=== PATIENT | female | born 1980 | race Caucasian/White ===

== ENCOUNTER 2023-04-05 16:32 | Emergency (ER) | payer OTHER ==
[~2023-04-05] VITALS: Ht 157.5 cm; Wt 122.5 kg
--- NOTE | 2023-04-05 16:32 | NUR ---
PT BIB SELF FROM HOME C/O SWELLING AND LEFT EYELID PUFFINESS. PT STATES WOKE UP THIS AM AT 0030 WITH FACIAL SWELLING. PT STATES SOME PAIN 5/10 ON LEFT SIDE OF FACE THAT DOES NOT RADIATE. PAIN IS POUNDING. PT DENIES ANY KNOWN ALLERGIC REACTION. PT RESTING COMFORTABLY IN CHAIR VSS
--- NOTE | 2023-04-05 16:32 | NUR ---
Triaged PT PLACE IN 2 IN [facility]
[2023-04-05 16:34] VITALS: BP_SYST 164
--- NOTE | 2023-04-05 16:40 | NUR ---
ER at bedside examining patient.
[2023-04-05] MEDS ORDERED: EPINEPHRINE HCL/PF 1 MG/ML AMP IM ONE (16:45)
[2023-04-05] MEDS ORDERED: EPIN0.3P3 IM (17:53)
[2023-04-05] MEDS ORDERED: IBUPROFEN 800 MG TABLET PO ONE ×2 (18:00)
--- NOTE | 2023-04-05 18:20 | NUR ---
Patient given written and verbal discharge instructions and verbalizes understanding. ER MD discussed with patient the results and treatment provided. Patient in stable condition. ID arm band removed. Patient educated on pain management and to follow up with PMD. Opportunity for questions provided and answered. Medication side effect fact sheet provided.
[2023-04-05 18:23] VITALS: BP_SYST 110
== END 2023-04-05 18:21 | disposition home or self-care (01) ==
LOC: SED 16:32
DX: T78.3XXA Angioneurotic edema, initial encounter (principal); R22.0 Localized swelling, mass and lump, head; R06.02 Shortness of breath; J45.909 Unspecified asthma, uncomplicated; Z79.899 Other long term (current) drug therapy
CPT/HCPCS: 81025; 96372; 99283

== ENCOUNTER 2023-08-19 16:10 | Emergency (ER) | payer OTHER ==
[~2023-08-19] VITALS: Ht 157.5 cm; Wt 122.5 kg
[2023-08-19 16:10] VITALS: BP_SYST 137; PULSE 91; RESP 19; TEMP 98.1; O2SAT 98
[~2023-08-19 16:10] MED LIST: EPIN0.3P3 IM
[2023-08-19] MEDS ORDERED: KETOROLAC TROMETHAMINE 60 MG/2 ML VIAL IM ONE (16:45)
[2023-08-19] MEDS ORDERED: PRED20TA PO (16:48)
[2023-08-19] MEDS ORDERED: NIRM1TAB PO (16:48)
[2023-08-19] MEDS ORDERED: IBUP-1971 PO (16:48)
[2023-08-19 17:37] VITALS: BP_SYST 133; PULSE 84; RESP 19; TEMP 98.1; O2SAT 98
== END 2023-08-19 17:36 | disposition home or self-care (01) ==
LOC: SED 16:10
DX: U07.1 COVID-19 (principal); J02.9 Acute pharyngitis, unspecified; R13.10 Dysphagia, unspecified; R05.9 Cough, unspecified; J45.909 Unspecified asthma, uncomplicated; Z79.899 Other long term (current) drug therapy
CPT/HCPCS: 99283; 87426; 36415; 96372; J1885

== ENCOUNTER 2023-09-01 19:14 | Emergency (ER) | payer OTHER ==
[~2023-09-01] VITALS: Ht 157.5 cm; Wt 122.5 kg
[~2023-09-01 19:14] MED LIST changes: +IBUP-1971 PO; +NIRM1TAB PO; +PRED20TA PO
[2023-09-01 19:53] VITALS: BP_SYST 165; PULSE 96; RESP 20; TEMP 97.9; O2SAT 98
[2023-09-01 20:59] LABS: BILIRUBIN,URINE NEGATIVE (NEGATIVE); BLOOD, URINE 1+ (NEGATIVE); COLOR,URINE YELLOW (YELLOW); GLUCOSE,URINE NEGATIVE (NEGATIVE); KETONES,URINE NEGATIVE (NEGATIVE); LEUKOCYTE ESTERASE ,URINE NEGATIVE (NEGATIVE); NITRITE, URINE NEGATIVE (NEGATIVE); PROTEIN URINE NEGATIVE (NEGATIVE); UROBILINOGEN,URINE 0.2 (0.2-1.0)
[2023-09-01 22:18] LABS: BACTERIA,URINE MODERATE /HPF (None Seen); CLARITY/URINE HAZY (CLEAR); MUCUS,URINE 1+ /LPF (None Seen); RBC,URINE 0-3 /HPF (0-3)
[2023-09-01 22:45] VITALS: BP_SYST 155; PULSE 99; RESP 18; TEMP 97; O2SAT 98
== END 2023-09-01 22:45 | disposition home or self-care (01) ==
LOC: SED 19:14
DX: M54.50 Low back pain, unspecified (principal); M25.561 Pain in right knee; M25.522 Pain in left elbow; J45.909 Unspecified asthma, uncomplicated; Z79.899 Other long term (current) drug therapy
CPT/HCPCS: 72128; 72131; 73564; 76376; 81000; 81001; 81015; 81025; 87086; 99284

== ENCOUNTER 2023-09-04 00:52 | Emergency (ER) | payer OTHER ==
[~2023-09-04] VITALS: Ht 157.5 cm; Wt 122.5 kg
[2023-09-04 01:00] VITALS: BP_SYST 156; PULSE 80; RESP 19; TEMP 97.9; O2SAT 96
[2023-09-04] MEDS ORDERED: ENALAPRILAT DIHYDRATE 1.25 MG/ML VIAL IVP ONE ×2 (01:00→03:45)
[2023-09-04 01:42] LABS: BASOPHILS # (AUTO) 0.1 K/uL (0.0-0.2); BASOPHILS % (AUTO) 0.6 % (0.0-2.0); EOSINOPHILS # (AUTO) 0.2 K/uL (0.0-0.4); EOSINOPHILS % (AUTO) 1.4 % (0.0-4.0); HEMATOCRIT 38.2 % (36-48); HEMOGLOBIN 12.6 g/dL (12.0-16.0); LYMPHOCYTES # (AUTO) 2.8 K/uL (1.0-5.5); LYMPHOCYTES % (AUTO) 20.3 % (20.5-51.5); MEAN CORPUSCULAR HEMOGLOBIN 26 pg (27-31); MEAN CORPUSCULAR HGB CONC 33 % (32-36); MEAN CORPUSCULAR VOLUME 79 fL (79.0-98.0); MONOCYTES # (AUTO) 0.5 K/uL (0.0-1.0); NEUTROPHILS # (AUTO) 10.1 K/uL (1.8-7.7); NEUTROPHILS % (AUTO) 73.7 % (40.0-70.0); PLATELET COUNT (AUTO) 240 K/uL (130-430); RED BLOOD CELL COUNT(AUTO) 4.81 MIL/uL (4.2-6.2); RED CELL DISTRIBUTION WIDTH 16.4 % (9.0-15.0); WHITE BLOOD COUNT (AUTO) 13.6 K/uL (4.8-10.8)
[2023-09-04 01:50] LABS: BILIRUBIN,URINE NEGATIVE (NEGATIVE); CLARITY/URINE SL CLOUDY (CLEAR); COLOR,URINE YELLOW (YELLOW); GLUCOSE,URINE NEGATIVE (NEGATIVE); KETONES,URINE NEGATIVE (NEGATIVE); LEUKOCYTE ESTERASE ,URINE NEGATIVE (NEGATIVE); NITRITE, URINE NEGATIVE (NEGATIVE); PH,URINE 5.5 (5.0-8.0); PROTEIN URINE NEGATIVE (NEGATIVE); UROBILINOGEN,URINE 0.2 (0.2-1.0)
[2023-09-04 01:55] LABS: BLOOD, URINE TRACE (NEGATIVE)
[2023-09-04 02:27] LABS: ANION GAP 11 (5-15); CALCIUM 9.1 mg/dL (8.4-11.0); CARBON DIOXIDE 26 mmol/L (23-29); CHLORIDE 104 mmol/L (98-107); GFR AFRICAN AMERICAN 89 mL/min (>90); GLUCOSE 113 mg/dL (74-106); POTASSIUM 3.5 mmol/L (3.5-5.1); SODIUM SERUM 141 mmol/L (136-145); UREA NITROGEN, BLOOD 8 mg/dL (8-21)
[2023-09-04 02:34] LABS: GFR NON AFRICAN-AMERICAN 73 mL/min (>90)
[2023-09-04 02:35] LABS: ALANINE AMINOTRANSFERASE 19 U/L (12-78); ALBUMIN 2.9 g/dL (3.4-4.8); ASPARTATE AMINOTRANSFERASE 11 U/L (10-37); TOTAL BILIRUBIN 0.2 mg/dL (0.0-1.0); TOTAL PROTEIN, SERUM 6.9 g/dL (6.4-8.3)
[2023-09-04 02:41] LABS: BACTERIA,URINE MODERATE /HPF (None Seen)
[2023-09-04] MEDS ORDERED: LISI20TA30 PO ×2 (03:38→05:31)
[2023-09-04] MEDS ORDERED: cefTRIAXone 2 GM VIAL ONE (05:30)
[2023-09-04] MEDS ORDERED: CIPR500T5 PO (05:31)
[2023-09-04 06:06] VITALS: BP_SYST 127; PULSE 71; RESP 18; TEMP 96.8; O2SAT 98
== END 2023-09-04 06:06 | disposition home or self-care (01) ==
LOC: SED 00:52
DX: R42 Dizziness and giddiness (principal); I10 Essential (primary) hypertension; R51.9 Headache, unspecified; J45.909 Unspecified asthma, uncomplicated; Z79.899 Other long term (current) drug therapy
CPT/HCPCS: 99284; 96365; 96375; 80053; 81001; 85025; 87040; 84484; 36415; 96376; 81000; 81015; J0696